=== PATIENT | male | born 1955 | race Caucasian/White ===

== ENCOUNTER 2018-04-30 10:39 | Emergency (ER) | payer OTHER ==
[~2018-04-30] VITALS: Ht 175.3 cm; Wt 99.8 kg
[~2018-04-30 10:39] MED LIST: ASPI81CH PO; AZAT50 PO; Augmentin 875-1 EACH PO; BUME1 PO; CALCA500S6 PO; CARV3.125 PO; ESTER-C 1,0001 EACH PO; FOLGARD TABLET1 EACH PO; FURO40 PO; GABA100 PO; LACT10SY; LAVAP17G PO; LOSA25 PO; MAGCIT300 PO; MAGOXI400 PO; MELA3 PO; MERIBIN5 MG PO; METO25ER PO; MIDO5 PO; MULT50L PO; NADO20; POTA10T; PRED1; PRED5 PO; Roxicodone5 MG PO; SPIR50 PO; TACR1 PO; TAMS.4ER PO; Tamiflu75 MG PO; Tessalon Perle100 MG PO; VALGANCICLOVIR450 MG PO
[2018-04-30] MEDS ORDERED: Tubersol (5 U/0.1 ML ID (10:55)
[2018-04-30] MEDS ORDERED: CHOL10002 PO (10:56)
[2018-04-30] MEDS ORDERED: GABA600 PO (10:57)
[2018-04-30] MEDS ORDERED: GABA100 PO (10:57)
[2018-04-30] MEDS ORDERED: LOSA25 PO (10:57)
[2018-04-30 11:48] LABS: BASOPHILS ABSOLUTE AUTO 0.03 K/mm3 (0.00-0.23); BASOPHILS PERCENT AUTO 1 % (0-2); EOSINOPHILS ABSOLUTE AUTO 0.27 K/mm3 (0.00-0.68); EOSINOPHILS PERCENT AUTO 5 % (0-6); Hematocrit 44.8 % (37.0-53.0); Hemoglobin 15.2 g/dL (13.5-17.5); IMMATURE GRAN ABSOLUTE AUTO 0.05 K/mm3 (0.00-0.10); IMMATURE GRAN PERCENT AUTO 1 % (0-1); LYMPHOCYTES ABSOLUTE AUTO 1.13 K/mm3 (0.84-5.20); LYMPHOCYTES PERCENT AUTO 20 % (21-46); MONOCYTES ABSOLUTE AUTO 0.72 K/mm3 (0.16-1.47); MONOCYTES PERCENT AUTO 13 % (4-13); Mean Corpuscular HGB 28.8 pg (26.0-34.0); Mean Corpuscular HGB Conc 33.9 g/dL (31.5-36.5); Mean Corpuscular Volume 85 fL (80-100); Mean Platelet Volume 10.8 fL (9.1-12.4); NEUTROPHILS ABSOLUTE AUTO 3.48 K/mm3 (1.96-9.15); NEUTROPHILS PERCENT AUTO 61 % (41-73); Platelet Count 124 K/mm3 (150-400); RDW Coefficient Variation 15.4 % (11.7-14.2); RDW Standard Deviation 47.5 fL (35.1-46.3); Red Blood Cell Count 5.27 M/mm3 (4.30-5.90); White Blood Cell Count 5.68 K/mm3 (4.00-11.30)
[2018-04-30 12:17] LABS: Alanine Aminotransfer (ALT/SGP 68 U/L (12-78); Albumin, Blood 3.4 g/dL (3.4-5.0); Albumin/Globulin Ratio 0.7 (0.8-1.8); Alk Phos 103 U/L (50-136); Anion Gap 8 mmol/L (6-16); Aspartate Aminotrans (AST/SGOT 36 U/L (12-37); Bilirubin, Total 1.1 mg/dL (0.1-1.0); Blood Urea Nitrogen 17 mg/dL (8-24); Bun/Creatinine Ratio 18.1 (12.0-20.0); CO2, Blood 25 mmol/L (21-32); Calcium, Blood 9.1 mg/dL (8.5-10.1); Chloride, Blood 102 mmol/L (98-108); Creatinine, Blood 0.94 mg/dL (0.60-1.20); Globulin, Blood 4.8 g/dL (2.2-4.0); Glomerular Filtration Rate >60 (60-); Glucose, Blood 113 mg/dL (70-99); Potassium, Blood 4.8 mmol/L (3.5-5.5); Sodium, Blood 135 mmol/L (136-145); Total Protein, Blood 8.2 g/dL (6.4-8.2)
== END 2018-04-30 14:58 | disposition home or self-care (01) ==
LOC: ER 10:39
PROVIDERS: Emergency Medicine
DX: G61.0 Guillain-Barre syndrome (principal); Z88.8 Allergy status to other drugs, medicaments and biological substances; Z79.899 Other long term (current) drug therapy; Z79.82 Long term (current) use of aspirin; Z79.52 Long term (current) use of systemic steroids; Z87.891 Personal history of nicotine dependence
CPT/HCPCS: 36415; 80053; 85025

== ENCOUNTER 2018-05-27 00:13 | Day surgery (SDC) | payer OTHER ==
[~2018-05-27 00:13] MED LIST changes: +CHOL10002 PO; +GABA600 PO; +Tubersol (5 U/0.1 ML ID
== END 2018-05-27 15:59 | disposition home or self-care (01) ==
LOC: ATC 00:13
DX: G61.81 Chronic inflammatory demyelinating polyneuritis (principal); Z94.4 Liver transplant status
CPT/HCPCS: 96365; 96366; J1568

== ENCOUNTER 2018-05-31 15:41 | Observation (INO) | payer OTHER ==
[~2018-05-31] VITALS: Ht 177.8 cm; Wt 98.9 kg
[2018-05-31] MEDS ORDERED: LOSA25 PO (15:51)
[2018-05-31] MEDS ORDERED: PRED1 PO (15:52)
[2018-05-31 17:20] LABS: BASOPHILS ABSOLUTE AUTO 0.02 K/mm3 (0.00-0.23); BASOPHILS PERCENT AUTO 0 % (0-2); EOSINOPHILS ABSOLUTE AUTO 0.11 K/mm3 (0.00-0.68); EOSINOPHILS PERCENT AUTO 2 % (0-6); Hematocrit 49.7 % (37.0-53.0); Hemoglobin 16.7 g/dL (13.5-17.5); IMMATURE GRAN ABSOLUTE AUTO 0.04 K/mm3 (0.00-0.10); IMMATURE GRAN PERCENT AUTO 1 % (0-1); LYMPHOCYTES ABSOLUTE AUTO 1.43 K/mm3 (0.84-5.20); LYMPHOCYTES PERCENT AUTO 27 % (21-46); MONOCYTES ABSOLUTE AUTO 0.73 K/mm3 (0.16-1.47); MONOCYTES PERCENT AUTO 14 % (4-13); Mean Corpuscular HGB Conc 33.6 g/dL (31.5-36.5); Mean Corpuscular Volume 86 fL (80-100); Mean Platelet Volume 11.3 fL (9.1-12.4); NEUTROPHILS ABSOLUTE AUTO 2.96 K/mm3 (1.96-9.15); NEUTROPHILS PERCENT AUTO 56 % (41-73); Platelet Count 163 K/mm3 (150-400); RDW Coefficient Variation 15.1 % (11.7-14.2); RDW Standard Deviation 47.8 fL (35.1-46.3); Red Blood Cell Count 5.76 M/mm3 (4.30-5.90); White Blood Cell Count 5.29 K/mm3 (4.00-11.30)
[2018-05-31 17:36] LABS: Alanine Aminotransfer (ALT/SGP 52 U/L (12-78); Albumin, Blood 3.4 g/dL (3.4-5.0); Albumin/Globulin Ratio 0.6 (0.8-1.8); Alk Phos 97 U/L (50-136); Anion Gap 8 mmol/L (6-16); Aspartate Aminotrans (AST/SGOT 32 U/L (12-37); Bilirubin, Total 0.8 mg/dL (0.1-1.0); Blood Urea Nitrogen 18 mg/dL (8-24); Bun/Creatinine Ratio 29.1 (12.0-20.0); CO2, Blood 21 mmol/L (21-32); Chloride, Blood 93 mmol/L (98-108); Creatinine, Blood 0.62 mg/dL (0.60-1.20); Glomerular Filtration Rate >60 (60-); Glucose, Blood 126 mg/dL (70-99); Potassium, Blood 4.6 mmol/L (3.5-5.5); Sodium, Blood 122 mmol/L (136-145); Total Protein, Blood 9.4 g/dL (6.4-8.2)
[2018-06-01 01:04] LABS: Free Thyroxine 1.06 ng/dL (0.70-1.60)
[2018-06-01 01:06] LABS: Thyroid Stimulating Hormone 4.47 uIU/mL (0.360-4.800)
[2018-06-01 03:43] LABS: Hematocrit 44.7 % (37.0-53.0); Hemoglobin 15.5 g/dL (13.5-17.5); Mean Corpuscular HGB 29.5 pg (26.0-34.0); Mean Corpuscular HGB Conc 34.7 g/dL (31.5-36.5); Mean Corpuscular Volume 85 fL (80-100); Mean Platelet Volume 9.6 fL (9.1-12.4); Platelet Count 142 K/mm3 (150-400); RDW Coefficient Variation 14.9 % (11.7-14.2); RDW Standard Deviation 45.3 fL (35.1-46.3); Red Blood Cell Count 5.26 M/mm3 (4.30-5.90); White Blood Cell Count 5.58 K/mm3 (4.00-11.30)
[2018-06-01 04:05] LABS: Alanine Aminotransfer (ALT/SGP 44 U/L (12-78); Albumin, Blood 3.2 g/dL (3.4-5.0); Albumin/Globulin Ratio 0.5 (0.8-1.8); Alk Phos 81 U/L (50-136); Anion Gap 8 mmol/L (6-16); Aspartate Aminotrans (AST/SGOT 25 U/L (12-37); Blood Urea Nitrogen 17 mg/dL (8-24); Bun/Creatinine Ratio 20.7 (12.0-20.0); CO2, Blood 24 mmol/L (21-32); Calcium, Blood 8.3 mg/dL (8.5-10.1); Chloride, Blood 93 mmol/L (98-108); Creatinine, Blood 0.82 mg/dL (0.60-1.20); Globulin, Blood 6.3 g/dL (2.2-4.0); Glomerular Filtration Rate >60 (60-); Glucose, Blood 104 mg/dL (70-99); Potassium, Blood 4.1 mmol/L (3.5-5.5); Sodium, Blood 125 mmol/L (136-145); Total Protein, Blood 9.5 g/dL (6.4-8.2)
[2018-06-01 08:53] LABS: Source, Urine Clean Catch
[2018-06-01 08:56] LABS: Bilirubin, Urine Neg (Neg); Blood, Urine 2+ (Neg); Glucose Qualitative, Urine Neg (Neg); Ketones, Urine Neg (Neg); Leukocyte Esterase, Urine Neg (Neg); Nitrite, Urine Neg (Neg); Protein, Urine Neg (Neg); Urobilinogen, Urine NORM (Normal)
[2018-06-01 09:15] LABS: Appearance, Urine Clear (Clear); Color, Urine Yellow (P-Yellow)
[2018-06-01 09:16] LABS: Bacteria Rare /hpf; Red Blood Cells, Urine 0-2 /hpf (0-2); Squamous Epithelial Cells Rare /hpf (Few); White Blood Cells, Urine 0-2 /hpf (0-5)
== END 2018-06-01 11:02 | disposition short-term general hospital (02) ==
LOC: ER 15:41 → PCU 06-01 00:02
PROVIDERS: Emergency Medicine; Internal Medicine
DX: G61.0 Guillain-Barre syndrome (principal); E87.1 Hypo-osmolality and hyponatremia; I10 Essential (primary) hypertension; Z79.82 Long term (current) use of aspirin; Z79.899 Other long term (current) drug therapy; Z88.8 Allergy status to other drugs, medicaments and biological substances
CPT/HCPCS: 36415; 71045; 80053; 81001; 84439; 84443; 85025; 85027; 96365; 96366; 96372; 99285; G0378; J1568; J1650; J7030; J7507; Q0163

== ENCOUNTER 2018-07-05 00:17 | Day surgery (SDC) | payer OTHER ==
[~2018-07-05 00:17] MED LIST changes: +PRED1 PO
[2018-07-05] MEDS ORDERED: Acyclovir200 MG PO (14:24)
[2018-07-05] MEDS ORDERED: Bactrim Ds Tab1 EACH PO (14:24)
[2018-07-05] MEDS ORDERED: FLUC100 PO (14:25)
== END 2018-07-05 16:18 | disposition home or self-care (01) ==
LOC: ATC 00:17
DX: G61.81 Chronic inflammatory demyelinating polyneuritis (principal); I10 Essential (primary) hypertension; Z87.891 Personal history of nicotine dependence
CPT/HCPCS: 96365; 96366; J1568

== ENCOUNTER 2018-07-07 13:37 | Day surgery (SDC) | payer OTHER ==
[~2018-07-07 13:37] MED LIST changes: +Acyclovir200 MG PO; +Bactrim Ds Tab1 EACH PO; +FLUC100 PO
== END 2018-07-07 16:10 | disposition home or self-care (01) ==
LOC: ATC 13:37
DX: G61.81 Chronic inflammatory demyelinating polyneuritis (principal); I10 Essential (primary) hypertension; Z87.891 Personal history of nicotine dependence
CPT/HCPCS: 96365; 96366; J1568

== ENCOUNTER 2018-07-08 00:24 | Day surgery (SDC) | payer OTHER | END 2018-07-08 16:40 | disposition home or self-care (01) | LOC: ATC 00:24 | DX: G61.81 Chronic inflammatory demyelinating polyneuritis (principal); I10 Essential (primary) hypertension; Z94.4 Liver transplant status; Z87.891 Personal history of nicotine dependence | CPT/HCPCS: 96365; 96366; J1568 ==

== ENCOUNTER 2018-10-04 00:48 | Day surgery (SDC) | payer OTHER ==
[~2018-10-04 00:48] MED LIST changes: +(None)20 M1 PO; -PRED1 PO; +TACROLIMUS5 MG PO
== END 2018-10-04 22:43 | disposition home or self-care (01) ==
LOC: ATC 00:48
DX: G61.81 Chronic inflammatory demyelinating polyneuritis (principal)
CPT/HCPCS: 96365; 96366; J1568

== ENCOUNTER 2018-10-05 00:04 | Day surgery (SDC) | payer OTHER | END 2018-10-05 16:30 | disposition home or self-care (01) | LOC: ATC 00:04 | DX: G61.81 Chronic inflammatory demyelinating polyneuritis (principal); N39.0 Urinary tract infection, site not specified | CPT/HCPCS: 96365; 96366; J1568 ==

== ENCOUNTER 2018-10-06 00:12 | Day surgery (SDC) | payer OTHER | END 2018-10-06 16:35 | disposition home or self-care (01) | LOC: ATC 00:12 | DX: G61.81 Chronic inflammatory demyelinating polyneuritis (principal) | CPT/HCPCS: 96365; 96366; J1568 ==

== ENCOUNTER 2018-10-07 00:12 | Day surgery (SDC) | payer OTHER | END 2018-10-07 16:34 | disposition home or self-care (01) | LOC: ATC 00:12 | DX: G61.81 Chronic inflammatory demyelinating polyneuritis (principal); N39.0 Urinary tract infection, site not specified; B96.29 Other Escherichia coli [E. coli] as the cause of diseases classified elsewhere; I10 Essential (primary) hypertension; F32.9 Major depressive disorder, single episode, unspecified | CPT/HCPCS: 96365; 96366; J1568 ==

== ENCOUNTER 2018-11-01 00:10 | Day surgery (SDC) | payer OTHER | END 2018-11-01 23:26 | disposition home or self-care (01) | LOC: ATC 00:10 | DX: N39.0 Urinary tract infection, site not specified (principal); B96.20 Unspecified Escherichia coli [E. coli] as the cause of diseases classified elsewhere; Z16.12 Extended spectrum beta lactamase (ESBL) resistance | CPT/HCPCS: 96365; 96366; J1568 ==

== ENCOUNTER 2018-11-02 00:19 | Day surgery (SDC) | payer OTHER | END 2018-11-02 16:03 | disposition home or self-care (01) | LOC: ATC 00:19 | DX: N39.0 Urinary tract infection, site not specified (principal); B96.20 Unspecified Escherichia coli [E. coli] as the cause of diseases classified elsewhere; Z16.12 Extended spectrum beta lactamase (ESBL) resistance | CPT/HCPCS: 96365; 96366; J1568 ==

== ENCOUNTER 2018-11-03 00:11 | Day surgery (SDC) | payer OTHER | END 2018-11-03 15:53 | disposition home or self-care (01) | LOC: ATC 00:11 | DX: G61.81 Chronic inflammatory demyelinating polyneuritis (principal); N39.0 Urinary tract infection, site not specified; B96.20 Unspecified Escherichia coli [E. coli] as the cause of diseases classified elsewhere; G61.0 Guillain-Barre syndrome; I10 Essential (primary) hypertension; Z16.12 Extended spectrum beta lactamase (ESBL) resistance; Z87.891 Personal history of nicotine dependence | CPT/HCPCS: 96365; 96366; J1568 ==

== ENCOUNTER 2018-11-04 00:16 | Day surgery (SDC) | payer OTHER | END 2018-11-04 13:55 | disposition home or self-care (01) | LOC: ATC 00:16 | DX: N39.0 Urinary tract infection, site not specified (principal); G61.81 Chronic inflammatory demyelinating polyneuritis; B96.20 Unspecified Escherichia coli [E. coli] as the cause of diseases classified elsewhere; G61.0 Guillain-Barre syndrome; I10 Essential (primary) hypertension; Z16.12 Extended spectrum beta lactamase (ESBL) resistance; Z87.891 Personal history of nicotine dependence | CPT/HCPCS: 96365; 96366; J1568 ==

== ENCOUNTER 2018-12-27 00:12 | Day surgery (SDC) | payer OTHER ==
[2018-12-27] MEDS ORDERED: VALA500 PO (13:45)
== END 2018-12-27 16:19 | disposition home or self-care (01) ==
LOC: ATC 00:12
DX: G61.81 Chronic inflammatory demyelinating polyneuritis (principal); N39.0 Urinary tract infection, site not specified; B96.20 Unspecified Escherichia coli [E. coli] as the cause of diseases classified elsewhere; Z16.12 Extended spectrum beta lactamase (ESBL) resistance; G61.0 Guillain-Barre syndrome; Z87.891 Personal history of nicotine dependence
CPT/HCPCS: 96365; 96366; J1568

== ENCOUNTER 2018-12-29 00:11 | Day surgery (SDC) | payer OTHER ==
[~2018-12-29 00:11] MED LIST changes: +VALA500 PO
== END 2018-12-29 15:45 | disposition home or self-care (01) ==
LOC: ATC 00:11
DX: G61.81 Chronic inflammatory demyelinating polyneuritis (principal); N39.0 Urinary tract infection, site not specified; B96.20 Unspecified Escherichia coli [E. coli] as the cause of diseases classified elsewhere; Z16.12 Extended spectrum beta lactamase (ESBL) resistance; G61.0 Guillain-Barre syndrome; Z87.891 Personal history of nicotine dependence
CPT/HCPCS: 96365; 96366; J1568

== ENCOUNTER 2018-12-30 00:16 | Day surgery (SDC) | payer OTHER | END 2018-12-30 17:05 | disposition home or self-care (01) | LOC: ATC 00:16 | DX: G61.81 Chronic inflammatory demyelinating polyneuritis (principal); N39.0 Urinary tract infection, site not specified; B96.20 Unspecified Escherichia coli [E. coli] as the cause of diseases classified elsewhere; Z16.12 Extended spectrum beta lactamase (ESBL) resistance; G61.0 Guillain-Barre syndrome; Z87.891 Personal history of nicotine dependence | CPT/HCPCS: 96365; 96366; J1568 ==

== ENCOUNTER 2019-01-31 00:26 | Day surgery (SDC) | payer OTHER ==
[~2019-01-31 00:26] MED LIST changes: +LEVO750 PO; +ONDA4ODT MM; +VALA500
[2019-01-31] MEDS ORDERED: IRBE75 PO (13:43)
[2019-01-31] MEDS ORDERED: PRED10 PO (13:44)
== END 2019-01-31 15:47 | disposition home or self-care (01) ==
LOC: ATC 00:26
DX: G61.81 Chronic inflammatory demyelinating polyneuritis (principal); I10 Essential (primary) hypertension; G61.0 Guillain-Barre syndrome; Z94.4 Liver transplant status; Z88.8 Allergy status to other drugs, medicaments and biological substances; Z79.899 Other long term (current) drug therapy; Z87.891 Personal history of nicotine dependence; Z79.82 Long term (current) use of aspirin
CPT/HCPCS: J1568

== ENCOUNTER 2019-02-01 00:11 | Day surgery (SDC) | payer OTHER ==
[~2019-02-01 00:11] MED LIST changes: +IRBE75 PO; +PRED10 PO
== END 2019-02-01 15:45 | disposition home or self-care (01) ==
LOC: ATC 00:11
DX: G61.81 Chronic inflammatory demyelinating polyneuritis (principal); I10 Essential (primary) hypertension; F17.210 Nicotine dependence, cigarettes, uncomplicated; Z94.4 Liver transplant status; Z88.8 Allergy status to other drugs, medicaments and biological substances; Z79.899 Other long term (current) drug therapy; Z79.82 Long term (current) use of aspirin
CPT/HCPCS: 96365; 96366; J1568

== ENCOUNTER 2019-02-02 00:22 | Day surgery (SDC) | payer OTHER, MEDICARE ==
--- NOTE | 2019-02-02 08:13 | NUR ---
LABS DRAWN WITH IV START.
[2019-02-02 08:27] LABS: BASOPHILS ABSOLUTE AUTO 0.04 K/mm3 (0.00-0.23); BASOPHILS PERCENT AUTO 1 % (0-2); EOSINOPHILS ABSOLUTE AUTO 0.04 K/mm3 (0.00-0.68); EOSINOPHILS PERCENT AUTO 1 % (0-6); Hematocrit 48.4 % (37.0-53.0); Hemoglobin 15.5 g/dL (13.5-17.5); IMMATURE GRAN ABSOLUTE AUTO 0.04 K/mm3 (0.00-0.10); IMMATURE GRAN PERCENT AUTO 1 % (0-1); LYMPHOCYTES ABSOLUTE AUTO 1.52 K/mm3 (0.84-5.20); LYMPHOCYTES PERCENT AUTO 29 % (21-46); MONOCYTES ABSOLUTE AUTO 0.38 K/mm3 (0.16-1.47); MONOCYTES PERCENT AUTO 7 % (4-13); Mean Corpuscular HGB 29.1 pg (26.0-34.0); Mean Corpuscular Volume 91 fL (80-100); Mean Platelet Volume 10.9 fL (9.1-12.4); NEUTROPHILS ABSOLUTE AUTO 3.19 K/mm3 (1.96-9.15); NEUTROPHILS PERCENT AUTO 61 % (41-73); Platelet Count 144 K/mm3 (150-400); RDW Coefficient Variation 16.1 % (11.7-14.2); RDW Standard Deviation 53.3 fL (35.1-46.3); Red Blood Cell Count 5.32 M/mm3 (4.30-5.90); White Blood Cell Count 5.21 K/mm3 (4.00-11.30)
[2019-02-02 09:03] LABS: Alanine Aminotransfer (ALT/SGP 70 U/L (12-78); Albumin, Blood 3.3 g/dL (3.4-5.0); Albumin/Globulin Ratio 0.6 (0.8-1.8); Alk Phos 132 U/L (50-136); Anion Gap 6 mmol/L (6-16); Aspartate Aminotrans (AST/SGOT 36 U/L (12-37); Bilirubin, Direct 0.2 mg/dL (0.0-0.3); Bilirubin, Total 0.7 mg/dL (0.1-1.0); Blood Urea Nitrogen 14 mg/dL (8-24); Bun/Creatinine Ratio 12.8 (12.0-20.0); CO2, Blood 28 mmol/L (21-32); Calcium, Blood 8.8 mg/dL (8.5-10.1); Chloride, Blood 103 mmol/L (98-108); Creatinine, Blood 1.09 mg/dL (0.60-1.20); Globulin, Blood 5.6 g/dL (2.2-4.0); Glomerular Filtration Rate >60 (60-); Glucose, Blood 87 mg/dL (70-99); Magnesium, Blood 1.8 mg/dL (1.6-2.4); Phosphorus, Blood 3.1 mg/dL (2.5-4.9); Potassium, Blood 3.9 mmol/L (3.5-5.5); Sodium, Blood 137 mmol/L (136-145); Total Protein, Blood 8.9 g/dL (6.4-8.2); Uric Acid, Blood 6.2 mg/dL (3.5-7.2)
== END 2019-02-02 11:33 | disposition home or self-care (01) ==
LOC: ATC 00:22
DX: G61.81 Chronic inflammatory demyelinating polyneuritis (principal); I10 Essential (primary) hypertension; G61.0 Guillain-Barre syndrome; Z94.4 Liver transplant status; Z88.8 Allergy status to other drugs, medicaments and biological substances; Z87.891 Personal history of nicotine dependence
CPT/HCPCS: 80053; 80197; 82248; 83735; 84100; 84550; 85025; 96365; 96366; J1568

== ENCOUNTER 2019-03-07 08:05 | Day surgery (SDC) | payer OTHER, MEDICARE ==
[2019-03-07] MEDS ORDERED: AZAT50 PO (08:34)
[2019-03-07 08:47] LABS: BASOPHILS ABSOLUTE AUTO 0.04 K/mm3 (0.00-0.23); BASOPHILS PERCENT AUTO 1 % (0-2); EOSINOPHILS ABSOLUTE AUTO 0.11 K/mm3 (0.00-0.68); EOSINOPHILS PERCENT AUTO 2 % (0-6); Hematocrit 45.8 % (37.0-53.0); Hemoglobin 15.2 g/dL (13.5-17.5); IMMATURE GRAN ABSOLUTE AUTO 0.03 K/mm3 (0.00-0.10); IMMATURE GRAN PERCENT AUTO 1 % (0-1); LYMPHOCYTES ABSOLUTE AUTO 1.45 K/mm3 (0.84-5.20); LYMPHOCYTES PERCENT AUTO 24 % (21-46); MONOCYTES ABSOLUTE AUTO 0.68 K/mm3 (0.16-1.47); MONOCYTES PERCENT AUTO 11 % (4-13); Mean Corpuscular HGB 30.1 pg (26.0-34.0); Mean Corpuscular HGB Conc 33.2 g/dL (31.5-36.5); Mean Corpuscular Volume 91 fL (80-100); Mean Platelet Volume 11.5 fL (9.1-12.4); NEUTROPHILS ABSOLUTE AUTO 3.66 K/mm3 (1.96-9.15); NEUTROPHILS PERCENT AUTO 61 % (41-73); Platelet Count 149 K/mm3 (150-400); RDW Coefficient Variation 14.6 % (11.7-14.2); RDW Standard Deviation 47.8 fL (35.1-46.3); Red Blood Cell Count 5.05 M/mm3 (4.30-5.90); White Blood Cell Count 5.97 K/mm3 (4.00-11.30)
[2019-03-07 09:09] LABS: Alanine Aminotransfer (ALT/SGP 85 U/L (12-78); Albumin, Blood 3.6 g/dL (3.4-5.0); Albumin/Globulin Ratio 0.9 (0.8-1.8); Alk Phos 157 U/L (50-136); Anion Gap 6 mmol/L (6-16); Aspartate Aminotrans (AST/SGOT 50 U/L (12-37); Bilirubin, Direct 0.1 mg/dL (0.0-0.3); Bilirubin, Total 0.5 mg/dL (0.1-1.0); Blood Urea Nitrogen 24 mg/dL (8-24); CO2, Blood 27 mmol/L (21-32); Chloride, Blood 106 mmol/L (98-108); Globulin, Blood 4.2 g/dL (2.2-4.0); Glomerular Filtration Rate >60 (60-); Glucose, Blood 94 mg/dL (70-99); Phosphorus, Blood 3.5 mg/dL (2.5-4.9); Potassium, Blood 4.1 mmol/L (3.5-5.5); Sodium, Blood 139 mmol/L (136-145); Total Protein, Blood 7.8 g/dL (6.4-8.2); Uric Acid, Blood 8.7 mg/dL (3.5-7.2)
== END 2019-03-07 12:29 | disposition home or self-care (01) ==
LOC: ATC 08:05
PROVIDERS: Internal Medicine
DX: G61.81 Chronic inflammatory demyelinating polyneuritis (principal); I10 Essential (primary) hypertension; Z94.4 Liver transplant status; Z88.8 Allergy status to other drugs, medicaments and biological substances
CPT/HCPCS: 80053; 80197; 82248; 83735; 84100; 84550; 85025; J1568

== ENCOUNTER 2019-03-08 07:24 | Day surgery (SDC) | payer MEDICARE, OTHER | END 2019-03-08 11:25 | disposition home or self-care (01) | LOC: ATC 07:24 | DX: G61.81 Chronic inflammatory demyelinating polyneuritis (principal); I10 Essential (primary) hypertension; Z94.4 Liver transplant status; Z86.19 Personal history of other infectious and parasitic diseases | CPT/HCPCS: J1568 ==

== ENCOUNTER 2019-03-09 07:56 | Day surgery (SDC) | payer OTHER ==
[2019-03-09 09:03] LABS: Alanine Aminotransfer (ALT/SGP 73 U/L (12-78); Albumin, Blood 3.4 g/dL (3.4-5.0); Albumin/Globulin Ratio 0.6 (0.8-1.8); Alk Phos 124 U/L (50-136); Anion Gap 6 mmol/L (6-16); Aspartate Aminotrans (AST/SGOT 46 U/L (12-37); Bilirubin, Direct 0.2 mg/dL (0.0-0.3); Bilirubin, Indirect 0.3 mg/dL (0.1-0.7); Bilirubin, Total 0.5 mg/dL (0.1-1.0); Blood Urea Nitrogen 17 mg/dL (8-24); Bun/Creatinine Ratio 16.5 (12.0-20.0); CO2, Blood 25 mmol/L (21-32); Calcium, Blood 8.7 mg/dL (8.5-10.1); Chloride, Blood 104 mmol/L (98-108); Creatinine, Blood 1.03 mg/dL (0.60-1.20); Glomerular Filtration Rate >60 (60-); Glucose, Blood 98 mg/dL (70-99); Phosphorus, Blood 3.3 mg/dL (2.5-4.9); Sodium, Blood 135 mmol/L (136-145); Total Protein, Blood 9.4 g/dL (6.4-8.2)
== END 2019-03-09 23:01 | disposition home or self-care (01) ==
LOC: ATC 07:56
PROVIDERS: Internal Medicine Nephrology
DX: G61.81 Chronic inflammatory demyelinating polyneuritis (principal); I12.9 Hypertensive chronic kidney disease with stage 1 through stage 4 chronic kidney disease, or unspecified chronic kidney disease; N18.2 Chronic kidney disease, stage 2 (mild); N25.81 Secondary hyperparathyroidism of renal origin; E55.9 Vitamin D deficiency, unspecified; E78.00 Pure hypercholesterolemia, unspecified; R94.5 Abnormal results of liver function studies; R94.6 Abnormal results of thyroid function studies; R76.9 Abnormal immunological finding in serum, unspecified; Z94.4 Liver transplant status; Z86.19 Personal history of other infectious and parasitic diseases; Z79.82 Long term (current) use of aspirin; Z79.899 Other long term (current) drug therapy; Z88.8 Allergy status to other drugs, medicaments and biological substances
CPT/HCPCS: 80053; 82248; 83970; 84100; J1568

== ENCOUNTER 2019-03-10 00:15 | Day surgery (SDC) | payer MEDICARE, OTHER | END 2019-03-10 11:19 | disposition home or self-care (01) | LOC: ATC 00:15 | DX: G61.81 Chronic inflammatory demyelinating polyneuritis (principal); I10 Essential (primary) hypertension; Z94.4 Liver transplant status; Z88.8 Allergy status to other drugs, medicaments and biological substances; Z79.899 Other long term (current) drug therapy; Z79.82 Long term (current) use of aspirin; Z87.891 Personal history of nicotine dependence | CPT/HCPCS: 96365; 96366; J1568 ==

== ENCOUNTER 2019-04-04 00:11 | Day surgery (SDC) | payer OTHER ==
[2019-04-04 09:04] LABS: BASOPHILS ABSOLUTE AUTO 0.04 K/mm3 (0.00-0.23); BASOPHILS PERCENT AUTO 1 % (0-2); EOSINOPHILS ABSOLUTE AUTO 0.12 K/mm3 (0.00-0.68); EOSINOPHILS PERCENT AUTO 3 % (0-6); Hematocrit 46.1 % (37.0-53.0); Hemoglobin 15.2 g/dL (13.5-17.5); IMMATURE GRAN ABSOLUTE AUTO 0.03 K/mm3 (0.00-0.10); IMMATURE GRAN PERCENT AUTO 1 % (0-1); LYMPHOCYTES ABSOLUTE AUTO 1.36 K/mm3 (0.84-5.20); LYMPHOCYTES PERCENT AUTO 29 % (21-46); MONOCYTES ABSOLUTE AUTO 0.52 K/mm3 (0.16-1.47); MONOCYTES PERCENT AUTO 11 % (4-13); Mean Corpuscular HGB 30.2 pg (26.0-34.0); Mean Corpuscular Volume 92 fL (80-100); Mean Platelet Volume 12.5 fL (9.1-12.4); NEUTROPHILS PERCENT AUTO 57 % (41-73); Platelet Count 146 K/mm3 (150-400); RDW Coefficient Variation 15.1 % (11.7-14.2); RDW Standard Deviation 50.7 fL (35.1-46.3); Red Blood Cell Count 5.04 M/mm3 (4.30-5.90); White Blood Cell Count 4.77 K/mm3 (4.00-11.30)
[2019-04-04 09:20] LABS: Anion Gap 7 mmol/L (6-16); Bilirubin, Direct 0.2 mg/dL (0.0-0.3); Blood Urea Nitrogen 20 mg/dL (8-24); Bun/Creatinine Ratio 20.8 (12.0-20.0); CO2, Blood 26 mmol/L (21-32); Chloride, Blood 105 mmol/L (98-108); Creatinine, Blood 0.96 mg/dL (0.60-1.20); Glomerular Filtration Rate >60 (60-); Glucose, Blood 97 mg/dL (70-99); Phosphorus, Blood 3.8 mg/dL (2.5-4.9); Potassium, Blood 4.2 mmol/L (3.5-5.5); Sodium, Blood 138 mmol/L (136-145); Uric Acid, Blood 6.3 mg/dL (3.5-7.2)
[2019-04-05] MEDS ORDERED: OCTAGAM 10% VIA20 ML IV (08:52)
== END 2019-04-04 11:34 | disposition home or self-care (01) ==
LOC: ATC 00:11
DX: G61.81 Chronic inflammatory demyelinating polyneuritis (principal); I10 Essential (primary) hypertension; K70.30 Alcoholic cirrhosis of liver without ascites; G61.0 Guillain-Barre syndrome; Z94.4 Liver transplant status; Z86.19 Personal history of other infectious and parasitic diseases
CPT/HCPCS: 80048; 80197; 82248; 84100; 84550; 85025; 96365; 96366; J1568

== ENCOUNTER 2019-04-05 00:16 | Day surgery (SDC) | payer OTHER ==
[2019-04-05] MEDS ORDERED: OCTAGAM 10% VIA20 ML IV (08:52)
== END 2019-04-05 11:55 | disposition home or self-care (01) ==
LOC: ATC 00:16
DX: G61.81 Chronic inflammatory demyelinating polyneuritis (principal); I10 Essential (primary) hypertension; G61.0 Guillain-Barre syndrome; Z94.4 Liver transplant status; Z86.19 Personal history of other infectious and parasitic diseases; Z88.8 Allergy status to other drugs, medicaments and biological substances
CPT/HCPCS: 96365; 96366; J1568

== ENCOUNTER 2019-04-06 00:06 | Day surgery (SDC) | payer OTHER ==
[~2019-04-06 00:06] MED LIST changes: +OCTAGAM 10% VIA20 ML IV
== END 2019-04-06 11:37 | disposition home or self-care (01) ==
LOC: ATC 00:06
DX: G61.81 Chronic inflammatory demyelinating polyneuritis (principal); I10 Essential (primary) hypertension; Z94.4 Liver transplant status; Z88.8 Allergy status to other drugs, medicaments and biological substances; Z79.899 Other long term (current) drug therapy; Z79.82 Long term (current) use of aspirin; Z87.891 Personal history of nicotine dependence
CPT/HCPCS: 96365; 96366; J1568

== ENCOUNTER 2019-07-04 00:03 | Day surgery (SDC) | payer OTHER ==
[2019-07-04 09:01] LABS: BASOPHILS ABSOLUTE AUTO 0.07 K/mm3 (0.00-0.23); BASOPHILS PERCENT AUTO 1 % (0-2); EOSINOPHILS ABSOLUTE AUTO 0.47 K/mm3 (0.00-0.68); EOSINOPHILS PERCENT AUTO 7 % (0-6); Hematocrit 46.1 % (37.0-53.0); Hemoglobin 14.9 g/dL (13.5-17.5); IMMATURE GRAN ABSOLUTE AUTO 0.02 K/mm3 (0.00-0.10); IMMATURE GRAN PERCENT AUTO 0 % (0-1); LYMPHOCYTES ABSOLUTE AUTO 1.64 K/mm3 (0.84-5.20); LYMPHOCYTES PERCENT AUTO 25 % (21-46); MONOCYTES ABSOLUTE AUTO 0.91 K/mm3 (0.16-1.47); MONOCYTES PERCENT AUTO 14 % (4-13); Mean Corpuscular HGB 28.3 pg (26.0-34.0); Mean Corpuscular HGB Conc 32.3 g/dL (31.5-36.5); Mean Corpuscular Volume 88 fL (80-100); NEUTROPHILS ABSOLUTE AUTO 3.48 K/mm3 (1.96-9.15); NEUTROPHILS PERCENT AUTO 53 % (41-73); Platelet Count 115 K/mm3 (150-400); RDW Coefficient Variation 13.9 % (11.7-14.2); RDW Standard Deviation 44.1 fL (35.1-46.3); Red Blood Cell Count 5.26 M/mm3 (4.30-5.90); White Blood Cell Count 6.59 K/mm3 (4.00-11.30)
[2019-07-04 09:07] LABS: Mean Platelet Volume 13.4 fL (9.1-12.4)
[2019-07-04 09:17] LABS: Alanine Aminotransfer (ALT/SGP 67 U/L (12-78); Albumin, Blood 3.6 g/dL (3.4-5.0); Albumin/Globulin Ratio 0.8 (0.8-1.8); Alk Phos 137 U/L (50-136); Anion Gap 7 mmol/L (6-16); Aspartate Aminotrans (AST/SGOT 38 U/L (12-37); Bilirubin, Direct 0.1 mg/dL (0.0-0.3); Bilirubin, Total 0.6 mg/dL (0.1-1.0); Blood Urea Nitrogen 24 mg/dL (8-24); Bun/Creatinine Ratio 22.2 (12.0-20.0); CO2, Blood 26 mmol/L (21-32); Calcium, Blood 8.9 mg/dL (8.5-10.1); Chloride, Blood 103 mmol/L (98-108); Creatinine, Blood 1.08 mg/dL (0.60-1.20); Globulin, Blood 4.3 g/dL (2.2-4.0); Glomerular Filtration Rate >60 (60-); Glucose, Blood 109 mg/dL (70-99); Magnesium, Blood 1.8 mg/dL (1.6-2.4); Phosphorus, Blood 3.4 mg/dL (2.5-4.9); Potassium, Blood 4.1 mmol/L (3.5-5.5); Sodium, Blood 136 mmol/L (136-145); Total Protein, Blood 7.9 g/dL (6.4-8.2); Uric Acid, Blood 7.8 mg/dL (3.5-7.2)
== END 2019-07-04 10:30 | disposition home or self-care (01) ==
LOC: ATC 00:03
PROVIDERS: Internal Medicine
DX: G61.81 Chronic inflammatory demyelinating polyneuritis (principal); I10 Essential (primary) hypertension; Z94.4 Liver transplant status
CPT/HCPCS: 80053; 80197; 82248; 83735; 84100; 84550; 85025; 96365; 96366; J1568

== ENCOUNTER 2019-07-05 00:16 | Day surgery (SDC) | payer OTHER | END 2019-07-05 10:13 | disposition home or self-care (01) | LOC: ATC 00:16 | DX: G61.81 Chronic inflammatory demyelinating polyneuritis (principal); I10 Essential (primary) hypertension; Z94.4 Liver transplant status; Z88.8 Allergy status to other drugs, medicaments and biological substances; Z87.891 Personal history of nicotine dependence | CPT/HCPCS: 96365; 96366; J1568; Q0163 ==

== ENCOUNTER 2019-07-06 00:15 | Day surgery (SDC) | payer OTHER | END 2019-07-06 10:13 | disposition home or self-care (01) | LOC: ATC 00:15 | DX: G61.81 Chronic inflammatory demyelinating polyneuritis (principal); I10 Essential (primary) hypertension; Z94.4 Liver transplant status; Z88.8 Allergy status to other drugs, medicaments and biological substances | CPT/HCPCS: 96365; 96366; 96413; 96415; J1568 ==

== ENCOUNTER 2019-07-07 00:24 | Day surgery (SDC) | payer OTHER ==
--- NOTE | 2019-07-07 08:15 | NUR ---
PT TOOK HIS OWN PREMEDS
== END 2019-07-07 10:18 | disposition home or self-care (01) ==
LOC: ATC 00:24
DX: G61.81 Chronic inflammatory demyelinating polyneuritis (principal); I10 Essential (primary) hypertension; Z79.899 Other long term (current) drug therapy; Z79.82 Long term (current) use of aspirin; Z94.4 Liver transplant status; Z88.8 Allergy status to other drugs, medicaments and biological substances
CPT/HCPCS: 96365; 96366; J1568

== ENCOUNTER 2019-08-02 00:08 | Day surgery (SDC) | payer OTHER ==
[2019-08-02] MEDS ORDERED: AZAT50 PO (08:25)
[2019-08-02 08:34] LABS: BASOPHILS ABSOLUTE AUTO 0.04 K/mm3 (0.00-0.23); BASOPHILS PERCENT AUTO 1 % (0-2); EOSINOPHILS ABSOLUTE AUTO 0.49 K/mm3 (0.00-0.68); EOSINOPHILS PERCENT AUTO 9 % (0-6); Hematocrit 44.8 % (37.0-53.0); Hemoglobin 14.4 g/dL (13.5-17.5); IMMATURE GRAN ABSOLUTE AUTO 0.02 K/mm3 (0.00-0.10); IMMATURE GRAN PERCENT AUTO 0 % (0-1); LYMPHOCYTES ABSOLUTE AUTO 1.37 K/mm3 (0.84-5.20); LYMPHOCYTES PERCENT AUTO 26 % (21-46); MONOCYTES ABSOLUTE AUTO 0.68 K/mm3 (0.16-1.47); MONOCYTES PERCENT AUTO 13 % (4-13); Mean Corpuscular HGB 27.8 pg (26.0-34.0); Mean Corpuscular HGB Conc 32.1 g/dL (31.5-36.5); Mean Corpuscular Volume 87 fL (80-100); Mean Platelet Volume 11.9 fL (9.1-12.4); NEUTROPHILS ABSOLUTE AUTO 2.64 K/mm3 (1.96-9.15); NEUTROPHILS PERCENT AUTO 50 % (41-73); Platelet Count 153 K/mm3 (150-400); RDW Coefficient Variation 14.6 % (11.7-14.2); RDW Standard Deviation 45.1 fL (35.1-46.3); Red Blood Cell Count 5.18 M/mm3 (4.30-5.90); White Blood Cell Count 5.24 K/mm3 (4.00-11.30)
[2019-08-02 08:56] LABS: Alanine Aminotransfer (ALT/SGP 60 U/L (12-78); Albumin, Blood 3.5 g/dL (3.4-5.0); Albumin/Globulin Ratio 0.8 (0.8-1.8); Alk Phos 123 U/L (50-136); Anion Gap 6 mmol/L (6-16); Aspartate Aminotrans (AST/SGOT 40 U/L (12-37); Bilirubin, Direct 0.2 mg/dL (0.0-0.3); Bilirubin, Indirect 0.3 mg/dL (0.1-0.7); Bilirubin, Total 0.5 mg/dL (0.1-1.0); Blood Urea Nitrogen 24 mg/dL (8-24); Bun/Creatinine Ratio 23.3 (12.0-20.0); CO2, Blood 26 mmol/L (21-32); Calcium, Blood 8.7 mg/dL (8.5-10.1); Chloride, Blood 106 mmol/L (98-108); Creatinine, Blood 1.03 mg/dL (0.60-1.20); Globulin, Blood 4.3 g/dL (2.2-4.0); Glomerular Filtration Rate >60 (60-); Glucose, Blood 120 mg/dL (70-99); Magnesium, Blood 1.9 mg/dL (1.6-2.4); Phosphorus, Blood 3.1 mg/dL (2.5-4.9); Potassium, Blood 4.1 mmol/L (3.5-5.5); Sodium, Blood 138 mmol/L (136-145); Total Protein, Blood 7.8 g/dL (6.4-8.2); Uric Acid, Blood 7.5 mg/dL (3.5-7.2)
== END 2019-08-02 10:40 | disposition home or self-care (01) ==
LOC: ATC 00:08
PROVIDERS: Internal Medicine
DX: G61.81 Chronic inflammatory demyelinating polyneuritis (principal); I10 Essential (primary) hypertension; Z79.82 Long term (current) use of aspirin; Z88.8 Allergy status to other drugs, medicaments and biological substances; Z79.899 Other long term (current) drug therapy; Z87.891 Personal history of nicotine dependence
CPT/HCPCS: 80053; 80197; 82248; 83735; 84100; 84550; 85025; 96365; 96366; J1568

== ENCOUNTER 2019-08-03 00:07 | Day surgery (SDC) | payer OTHER | END 2019-08-03 10:15 | disposition home or self-care (01) | LOC: ATC 00:07 | DX: G61.81 Chronic inflammatory demyelinating polyneuritis (principal); I10 Essential (primary) hypertension; G61.0 Guillain-Barre syndrome; Z94.4 Liver transplant status; Z88.8 Allergy status to other drugs, medicaments and biological substances; Z79.82 Long term (current) use of aspirin; Z79.899 Other long term (current) drug therapy; Z79.52 Long term (current) use of systemic steroids; Z87.891 Personal history of nicotine dependence | CPT/HCPCS: 96365; 96366; J1568 ==

== ENCOUNTER 2019-08-04 00:08 | Day surgery (SDC) | payer OTHER ==
--- NOTE | 2019-08-04 08:11 | NUR ---
PT TAKES HIS OWN PRE MEDS AT HOME FOR HIS IVIG INFUSION.
== END 2019-08-04 10:05 | disposition home or self-care (01) ==
LOC: ATC 00:08
DX: G61.81 Chronic inflammatory demyelinating polyneuritis (principal); G61.0 Guillain-Barre syndrome; I10 Essential (primary) hypertension; Z94.4 Liver transplant status; Z88.8 Allergy status to other drugs, medicaments and biological substances; Z79.899 Other long term (current) drug therapy; Z79.82 Long term (current) use of aspirin; Z79.52 Long term (current) use of systemic steroids; Z87.891 Personal history of nicotine dependence
CPT/HCPCS: 96365; 96366; J1568

== ENCOUNTER 2019-08-05 01:07 | Day surgery (SDC) | payer OTHER | END 2019-08-05 10:36 | disposition home or self-care (01) | LOC: ATC 01:07 | DX: G61.81 Chronic inflammatory demyelinating polyneuritis (principal); I10 Essential (primary) hypertension; Z88.8 Allergy status to other drugs, medicaments and biological substances; Z79.82 Long term (current) use of aspirin; Z87.891 Personal history of nicotine dependence | CPT/HCPCS: 96365; 96366; J1568 ==

== ENCOUNTER 2019-08-29 00:01 | Day surgery (SDC) | payer OTHER ==
--- NOTE | 2019-08-29 08:15 | NUR ---
PT TOOK PRE MEDS AT HOME.
[2019-08-29 09:17] LABS: BASOPHILS ABSOLUTE AUTO 0.04 K/mm3 (0.00-0.23); BASOPHILS PERCENT AUTO 1 % (0-2); EOSINOPHILS ABSOLUTE AUTO 0.65 K/mm3 (0.00-0.68); EOSINOPHILS PERCENT AUTO 12 % (0-6); Hematocrit 45.2 % (37.0-53.0); Hemoglobin 14.7 g/dL (13.5-17.5); IMMATURE GRAN ABSOLUTE AUTO 0.02 K/mm3 (0.00-0.10); IMMATURE GRAN PERCENT AUTO 0 % (0-1); LYMPHOCYTES ABSOLUTE AUTO 1.36 K/mm3 (0.84-5.20); LYMPHOCYTES PERCENT AUTO 24 % (21-46); MONOCYTES ABSOLUTE AUTO 0.72 K/mm3 (0.16-1.47); MONOCYTES PERCENT AUTO 13 % (4-13); Mean Corpuscular HGB 28.1 pg (26.0-34.0); Mean Corpuscular HGB Conc 32.5 g/dL (31.5-36.5); Mean Corpuscular Volume 86 fL (80-100); Mean Platelet Volume 12.4 fL (9.1-12.4); NEUTROPHILS ABSOLUTE AUTO 2.84 K/mm3 (1.96-9.15); NEUTROPHILS PERCENT AUTO 50 % (41-73); Platelet Count 105 K/mm3 (150-400); Red Blood Cell Count 5.24 M/mm3 (4.30-5.90); White Blood Cell Count 5.63 K/mm3 (4.00-11.30)
[2019-08-29 09:33] LABS: Alanine Aminotransfer (ALT/SGP 70 U/L (12-78); Albumin, Blood 3.5 g/dL (3.4-5.0); Albumin/Globulin Ratio 0.8 (0.8-1.8); Alk Phos 117 U/L (50-136); Anion Gap 5 mmol/L (6-16); Aspartate Aminotrans (AST/SGOT 36 U/L (12-37); Bilirubin, Direct 0.2 mg/dL (0.0-0.3); Bilirubin, Total 0.7 mg/dL (0.1-1.0); Blood Urea Nitrogen 15 mg/dL (8-24); Bun/Creatinine Ratio 13.4 (12.0-20.0); CO2, Blood 26 mmol/L (21-32); Calcium, Blood 8.9 mg/dL (8.5-10.1); Chloride, Blood 107 mmol/L (98-108); Creatinine, Blood 1.12 mg/dL (0.60-1.20); Globulin, Blood 4.4 g/dL (2.2-4.0); Glomerular Filtration Rate >60 (60-); Glucose, Blood 110 mg/dL (70-99); Magnesium, Blood 1.5 mg/dL (1.6-2.4); Phosphorus, Blood 3.5 mg/dL (2.5-4.9); Potassium, Blood 4.2 mmol/L (3.5-5.5); Sodium, Blood 138 mmol/L (136-145); Total Protein, Blood 7.9 g/dL (6.4-8.2); Uric Acid, Blood 6.7 mg/dL (3.5-7.2)
--- NOTE | 2019-08-29 11:38 | NUR ---
LAB RESULTS FROM TODAY (EXCEPT THE TACROLIMUS WHICH IS A SEND OUT LAB) FAXED TO [facility].
== END 2019-08-29 10:14 | disposition home or self-care (01) ==
LOC: ATC 00:01
PROVIDERS: Internal Medicine
DX: G61.81 Chronic inflammatory demyelinating polyneuritis (principal); I10 Essential (primary) hypertension; G61.0 Guillain-Barre syndrome; Z94.4 Liver transplant status; Z79.82 Long term (current) use of aspirin; Z79.52 Long term (current) use of systemic steroids; Z79.899 Other long term (current) drug therapy; Z87.891 Personal history of nicotine dependence; Z88.8 Allergy status to other drugs, medicaments and biological substances
CPT/HCPCS: 80053; 80197; 82248; 83735; 84100; 84550; 85025; 96365; 96366; J1568

== ENCOUNTER 2019-08-30 00:12 | Day surgery (SDC) | payer OTHER | END 2019-08-30 10:17 | disposition home or self-care (01) | LOC: ATC 00:12 | DX: G61.81 Chronic inflammatory demyelinating polyneuritis (principal); I10 Essential (primary) hypertension; G61.0 Guillain-Barre syndrome; Z94.4 Liver transplant status; Z79.82 Long term (current) use of aspirin; Z79.52 Long term (current) use of systemic steroids; Z79.899 Other long term (current) drug therapy; Z88.8 Allergy status to other drugs, medicaments and biological substances; Z87.891 Personal history of nicotine dependence | CPT/HCPCS: 96365; 96366; J1568 ==

== ENCOUNTER 2019-09-29 06:50 | Day surgery (SDC) | payer OTHER ==
[~2019-09-29] VITALS: Ht 177.8 cm; Wt 107.9 kg
[~2019-09-29 06:50] MED LIST changes: +ADMELOG SO100 UNIT/1 SC; +Aspirin EC81 MG PO; +OMEPRAZOLE20 MG PO; +Oyster Shell C500 MG PO; +TACROLIMUS0.5 MG PO
--- NOTE | 2019-09-29 08:08 | NUR ---
09/29/19 0808 Mraylu Byrne PT. WHEEZY WHEN TURNED TO LEFT SIDE. DR. BROOKS WAS AWARE. PT. C/O HAVING ALLERGIES FROM OUTSIDE.
--- NOTE | 2019-09-29 11:34 | NUR ---
09/29/19 1134 Marylu Byrne S LATE ENTRY FOR 0757 PT. HAD VERBALIZED THAT HE HAD SOME CONGESTION. PT. VERBALIZES FROM OUTDOOR ALLERGIES. PT. DIDN'T FEEL CONGESTED IN CHEST, JUST NASAL/HEAD CONGESTION. PT. HAD VERBALIZED THAT HE HAD TOLD DR. BROOKS. PT. WITH CLEAR LUNGS.
== END 2019-09-29 09:30 | disposition home or self-care (01) ==
LOC: ORSCSDS 06:50
PROVIDERS: Internal Medicine Gastroenterology
PROC: 0DBP8ZX Excision of Rectum, Via Natural or Artificial Opening Endoscopic, Diagnostic (ICD-10-PCS; principal; 2019-09-29 08:00)
PROC: 0DBL8ZX Excision of Transverse Colon, Via Natural or Artificial Opening Endoscopic, Diagnostic (ICD-10-PCS; principal; 2019-09-29 08:00)
PROC: 0DBH8ZX Excision of Cecum, Via Natural or Artificial Opening Endoscopic, Diagnostic (ICD-10-PCS; principal; 2019-09-29 08:00)
DX: Z12.11 Encounter for screening for malignant neoplasm of colon (principal); Z86.010 Personal history of colon polyps; K57.30 Diverticulosis of large intestine without perforation or abscess without bleeding; K64.4 Residual hemorrhoidal skin tags; D12.3 Benign neoplasm of transverse colon; D12.0 Benign neoplasm of cecum; K62.1 Rectal polyp; I10 Essential (primary) hypertension; Z87.891 Personal history of nicotine dependence; K70.30 Alcoholic cirrhosis of liver without ascites; R73.9 Hyperglycemia, unspecified; E11.9 Type 2 diabetes mellitus without complications; Z79.899 Other long term (current) drug therapy; Z79.4 Long term (current) use of insulin; Z79.82 Long term (current) use of aspirin
CPT/HCPCS: 82947; 88305; J0330; J0461; J2250; J2405; J2704; J7120

== ENCOUNTER 2019-10-03 00:26 | Day surgery (SDC) | payer OTHER ==
[2019-10-03 08:53] LABS: BASOPHILS ABSOLUTE AUTO 0.05 K/mm3 (0.00-0.23); BASOPHILS PERCENT AUTO 1 % (0-2); EOSINOPHILS ABSOLUTE AUTO 0.76 K/mm3 (0.00-0.68); EOSINOPHILS PERCENT AUTO 10 % (0-6); IMMATURE GRAN ABSOLUTE AUTO 0.02 K/mm3 (0.00-0.10); IMMATURE GRAN PERCENT AUTO 0 % (0-1); LYMPHOCYTES ABSOLUTE AUTO 1.49 K/mm3 (0.84-5.20); LYMPHOCYTES PERCENT AUTO 20 % (21-46); MONOCYTES ABSOLUTE AUTO 0.83 K/mm3 (0.16-1.47); MONOCYTES PERCENT AUTO 11 % (4-13); Mean Corpuscular HGB 28.5 pg (26.0-34.0); Mean Corpuscular HGB Conc 33.3 g/dL (31.5-36.5); Mean Corpuscular Volume 85 fL (80-100); Mean Platelet Volume 12.4 fL (9.1-12.4); NEUTROPHILS ABSOLUTE AUTO 4.48 K/mm3 (1.96-9.15); NEUTROPHILS PERCENT AUTO 59 % (41-73); Platelet Count 143 K/mm3 (150-400); RDW Coefficient Variation 15.8 % (11.7-14.2); RDW Standard Deviation 47.5 fL (35.1-46.3); Red Blood Cell Count 5.62 M/mm3 (4.30-5.90); White Blood Cell Count 7.63 K/mm3 (4.00-11.30)
[2019-10-03 09:12] LABS: Alanine Aminotransfer (ALT/SGP 56 U/L (12-78); Albumin, Blood 3.8 g/dL (3.4-5.0); Albumin/Globulin Ratio 0.9 (0.8-1.8); Alk Phos 104 U/L (50-136); Anion Gap 7 mmol/L (6-16); Aspartate Aminotrans (AST/SGOT 31 U/L (12-37); Bilirubin, Direct 0.2 mg/dL (0.0-0.3); Bilirubin, Total 0.7 mg/dL (0.1-1.0); Blood Urea Nitrogen 19 mg/dL (8-24); CO2, Blood 24 mmol/L (21-32); Calcium, Blood 8.8 mg/dL (8.5-10.1); Chloride, Blood 105 mmol/L (98-108); Globulin, Blood 4.4 g/dL (2.2-4.0); Glomerular Filtration Rate >60 (60-); Glucose, Blood 122 mg/dL (70-99); Magnesium, Blood 1.6 mg/dL (1.6-2.4); Phosphorus, Blood 2.4 mg/dL (2.5-4.9); Potassium, Blood 3.9 mmol/L (3.5-5.5); Sodium, Blood 136 mmol/L (136-145); Total Protein, Blood 8.2 g/dL (6.4-8.2); Uric Acid, Blood 7.3 mg/dL (3.5-7.2)
== END 2019-10-03 11:02 | disposition home or self-care (01) ==
LOC: ATC 00:26
PROVIDERS: Internal Medicine
DX: G61.81 Chronic inflammatory demyelinating polyneuritis (principal); I10 Essential (primary) hypertension; G61.0 Guillain-Barre syndrome; Z94.4 Liver transplant status; Z79.52 Long term (current) use of systemic steroids; Z87.891 Personal history of nicotine dependence; Z79.82 Long term (current) use of aspirin; Z79.899 Other long term (current) drug therapy; Z88.8 Allergy status to other drugs, medicaments and biological substances
CPT/HCPCS: 80053; 80197; 82248; 83735; 84100; 84550; 85025; 96365; 96366; A9270; J1568; Q0163

== ENCOUNTER 2019-10-04 00:29 | Day surgery (SDC) | payer OTHER ==
--- NOTE | 2019-10-04 09:56 | NUR ---
PREMEDICATION PER PT, HE PREMEDICATED WITH OWN MEDICATION BEFORE ARRIVING TO ANU. NO PREMEDICATION MEDS GIVEN DUE TO THIS.
== END 2019-10-04 10:39 | disposition home or self-care (01) ==
LOC: ATC 00:29
DX: G61.81 Chronic inflammatory demyelinating polyneuritis (principal); I10 Essential (primary) hypertension; G61.0 Guillain-Barre syndrome; Z94.4 Liver transplant status; Z79.52 Long term (current) use of systemic steroids; Z79.82 Long term (current) use of aspirin; Z79.899 Other long term (current) drug therapy; Z88.8 Allergy status to other drugs, medicaments and biological substances
CPT/HCPCS: 96365; 96366; J1568

== ENCOUNTER 2019-10-05 00:15 | Day surgery (SDC) | payer OTHER ==
--- NOTE | 2019-10-05 08:42 | NUR ---
IV STARTS: DAFNE FISH RN ATTEMPTED 3 IV STARTS AND THIS RN ATTEMPTED 4, SUCCESS ON FOURTH.
== END 2019-10-05 10:40 | disposition home or self-care (01) ==
LOC: ATC 00:15
DX: G61.81 Chronic inflammatory demyelinating polyneuritis (principal); I10 Essential (primary) hypertension; G61.0 Guillain-Barre syndrome; Z94.4 Liver transplant status; Z79.82 Long term (current) use of aspirin; Z79.52 Long term (current) use of systemic steroids; Z79.899 Other long term (current) drug therapy; Z87.891 Personal history of nicotine dependence; Z88.8 Allergy status to other drugs, medicaments and biological substances
CPT/HCPCS: 96365; 96366; J1568

== ENCOUNTER 2019-10-06 00:12 | Day surgery (SDC) | payer OTHER | END 2019-10-06 10:25 | disposition home or self-care (01) | LOC: ATC 00:12 | DX: G61.81 Chronic inflammatory demyelinating polyneuritis (principal); I10 Essential (primary) hypertension; G61.0 Guillain-Barre syndrome; Z79.4 Long term (current) use of insulin; Z79.52 Long term (current) use of systemic steroids; Z79.82 Long term (current) use of aspirin; Z79.899 Other long term (current) drug therapy; Z88.8 Allergy status to other drugs, medicaments and biological substances; Z87.891 Personal history of nicotine dependence | CPT/HCPCS: 96365; 96366; J1568 ==

== ENCOUNTER 2019-11-01 00:02 | Day surgery (SDC) | payer OTHER ==
[2019-11-01 08:55] LABS: BASOPHILS ABSOLUTE AUTO 0.03 K/mm3 (0.00-0.23); BASOPHILS PERCENT AUTO 0 % (0-2); EOSINOPHILS ABSOLUTE AUTO 0.31 K/mm3 (0.00-0.68); EOSINOPHILS PERCENT AUTO 4 % (0-6); Hematocrit 47.2 % (37.0-53.0); Hemoglobin 15.5 g/dL (13.5-17.5); IMMATURE GRAN ABSOLUTE AUTO 0.02 K/mm3 (0.00-0.10); IMMATURE GRAN PERCENT AUTO 0 % (0-1); LYMPHOCYTES ABSOLUTE AUTO 1.26 K/mm3 (0.84-5.20); LYMPHOCYTES PERCENT AUTO 17 % (21-46); MONOCYTES ABSOLUTE AUTO 0.94 K/mm3 (0.16-1.47); MONOCYTES PERCENT AUTO 13 % (4-13); Mean Corpuscular HGB 28.5 pg (26.0-34.0); Mean Corpuscular HGB Conc 32.8 g/dL (31.5-36.5); Mean Corpuscular Volume 87 fL (80-100); Mean Platelet Volume 12.6 fL (9.1-12.4); NEUTROPHILS ABSOLUTE AUTO 4.96 K/mm3 (1.96-9.15); NEUTROPHILS PERCENT AUTO 66 % (41-73); Platelet Count 113 K/mm3 (150-400); RDW Coefficient Variation 15.9 % (11.7-14.2); RDW Standard Deviation 49.4 fL (35.1-46.3); Red Blood Cell Count 5.43 M/mm3 (4.30-5.90); White Blood Cell Count 7.52 K/mm3 (4.00-11.30)
[2019-11-01 09:04] LABS: Alanine Aminotransfer (ALT/SGP 53 U/L (12-78); Albumin, Blood 3.6 g/dL (3.4-5.0); Albumin/Globulin Ratio 0.8 (0.8-1.8); Alk Phos 117 U/L (50-136); Anion Gap 8 mmol/L (6-16); Aspartate Aminotrans (AST/SGOT 29 U/L (12-37); Bilirubin, Direct 0.3 mg/dL (0.0-0.3); Bilirubin, Total 0.9 mg/dL (0.1-1.0); Blood Urea Nitrogen 17 mg/dL (8-24); Bun/Creatinine Ratio 16.3 (12.0-20.0); CO2, Blood 24 mmol/L (21-32); Calcium, Blood 8.8 mg/dL (8.5-10.1); Chloride, Blood 104 mmol/L (98-108); Creatinine, Blood 1.04 mg/dL (0.60-1.20); Globulin, Blood 4.7 g/dL (2.2-4.0); Glomerular Filtration Rate >60 (60-); Glucose, Blood 129 mg/dL (70-99); Magnesium, Blood 1.5 mg/dL (1.6-2.4); Phosphorus, Blood 2.4 mg/dL (2.5-4.9); Sodium, Blood 136 mmol/L (136-145); Total Protein, Blood 8.3 g/dL (6.4-8.2); Uric Acid, Blood 6.9 mg/dL (3.5-7.2)
== END 2019-11-01 10:35 | disposition home or self-care (01) ==
LOC: ATC 00:02
PROVIDERS: Internal Medicine
DX: G61.81 Chronic inflammatory demyelinating polyneuritis (principal); G61.0 Guillain-Barre syndrome; I10 Essential (primary) hypertension; Z94.4 Liver transplant status; Z79.82 Long term (current) use of aspirin; Z79.52 Long term (current) use of systemic steroids; Z79.899 Other long term (current) drug therapy; Z87.891 Personal history of nicotine dependence; Z88.8 Allergy status to other drugs, medicaments and biological substances
CPT/HCPCS: 80053; 80197; 82248; 83735; 84100; 84550; 85025; 96365; 96366; A9270; J1568; Q0163

== ENCOUNTER 2019-12-15 00:04 | Day surgery (SDC) | payer OTHER ==
[2019-12-15 08:39] LABS: BASOPHILS ABSOLUTE AUTO 0.05 K/mm3 (0.00-0.23); BASOPHILS PERCENT AUTO 1 % (0-2); EOSINOPHILS ABSOLUTE AUTO 1.37 K/mm3 (0.00-0.68); EOSINOPHILS PERCENT AUTO 16 % (0-6); Hematocrit 50.1 % (37.0-53.0); Hemoglobin 16.9 g/dL (13.5-17.5); IMMATURE GRAN ABSOLUTE AUTO 0.03 K/mm3 (0.00-0.10); IMMATURE GRAN PERCENT AUTO 0 % (0-1); LYMPHOCYTES ABSOLUTE AUTO 1.06 K/mm3 (0.84-5.20); LYMPHOCYTES PERCENT AUTO 13 % (21-46); MONOCYTES ABSOLUTE AUTO 0.68 K/mm3 (0.16-1.47); MONOCYTES PERCENT AUTO 8 % (4-13); Mean Corpuscular HGB 29.7 pg (26.0-34.0); Mean Corpuscular HGB Conc 33.7 g/dL (31.5-36.5); Mean Corpuscular Volume 88 fL (80-100); NEUTROPHILS ABSOLUTE AUTO 5.24 K/mm3 (1.96-9.15); NEUTROPHILS PERCENT AUTO 62 % (41-73); Platelet Count 122 K/mm3 (150-400); RDW Coefficient Variation 15.4 % (11.7-14.2); RDW Standard Deviation 49.5 fL (35.1-46.3); Red Blood Cell Count 5.69 M/mm3 (4.30-5.90); White Blood Cell Count 8.43 K/mm3 (4.00-11.30)
[2019-12-15] MEDS ORDERED: AZIT500 PO ×2 (08:39→08:40)
[2019-12-15] MEDS ORDERED: ALBU90OI INH (08:39)
[2019-12-15 09:01] LABS: Alanine Aminotransfer (ALT/SGP 40 U/L (12-78); Albumin, Blood 3.9 g/dL (3.4-5.0); Albumin/Globulin Ratio 0.8 (0.8-1.8); Alk Phos 133 U/L (50-136); Anion Gap 5 mmol/L (6-16); Aspartate Aminotrans (AST/SGOT 32 U/L (12-37); Bilirubin, Direct 0.3 mg/dL (0.0-0.3); Bilirubin, Total 1.2 mg/dL (0.1-1.0); Blood Urea Nitrogen 16 mg/dL (8-24); Bun/Creatinine Ratio 15.7 (12.0-20.0); CO2, Blood 26 mmol/L (21-32); Calcium, Blood 9.3 mg/dL (8.5-10.1); Chloride, Blood 104 mmol/L (98-108); Creatinine, Blood 1.02 mg/dL (0.60-1.20); Globulin, Blood 4.8 g/dL (2.2-4.0); Glomerular Filtration Rate >60 (60-); Glucose, Blood 120 mg/dL (70-99); Phosphorus, Blood 3.5 mg/dL (2.5-4.9); Potassium, Blood 4.2 mmol/L (3.5-5.5); Sodium, Blood 135 mmol/L (136-145); Total Protein, Blood 8.7 g/dL (6.4-8.2); Uric Acid, Blood 7.4 mg/dL (3.5-7.2)
== END 2019-12-15 10:16 | disposition home or self-care (01) ==
LOC: ATC 00:04
PROVIDERS: Internal Medicine
DX: G61.81 Chronic inflammatory demyelinating polyneuritis (principal); I10 Essential (primary) hypertension; Z79.82 Long term (current) use of aspirin; Z88.8 Allergy status to other drugs, medicaments and biological substances; Z87.891 Personal history of nicotine dependence; Z79.899 Other long term (current) drug therapy
CPT/HCPCS: 80053; 80197; 82248; 83735; 84100; 84550; 85025; 96365; 96366; J1568

== ENCOUNTER 2019-12-16 00:51 | Day surgery (SDC) | payer OTHER ==
[~2019-12-16 00:51] MED LIST changes: +ALBU90OI INH; +AZIT500 PO
== END 2019-12-16 11:09 | disposition home or self-care (01) ==
LOC: ATC 00:51
DX: N30.00 Acute cystitis without hematuria (principal); N39.46 Mixed incontinence; J45.909 Unspecified asthma, uncomplicated; I13.0 Hypertensive heart and chronic kidney disease with heart failure and stage 1 through stage 4 chronic kidney disease, or unspecified chronic kidney disease; I50.9 Heart failure, unspecified; N18.9 Chronic kidney disease, unspecified; E78.00 Pure hypercholesterolemia, unspecified; Z87.891 Personal history of nicotine dependence; Z79.899 Other long term (current) drug therapy; Z88.2 Allergy status to sulfonamides; Z88.1 Allergy status to other antibiotic agents; Z88.8 Allergy status to other drugs, medicaments and biological substances; Z79.01 Long term (current) use of anticoagulants
CPT/HCPCS: 96365; 96366; J1568

== ENCOUNTER 2019-12-26 10:03 | Inpatient (IN) | payer OTHER ==
[~2019-12-26] VITALS: Ht 175.3 cm; Wt 106.6 kg
[~2019-12-26 10:03] MED LIST changes: +ASCO500 PO; -CHOL10002 PO; -ESTER-C 1,0001 EACH PO; +GABA300 PO; -GABA600 PO; +PRED1 PO; -PRED10 PO; +VITAMIN D31000 UNI1 PO
[2019-12-26 11:08] LABS: BASOPHILS ABSOLUTE AUTO 0.06 K/mm3 (0.00-0.23); BASOPHILS PERCENT AUTO 1 % (0-2); EOSINOPHILS PERCENT AUTO 15 % (0-6); Hematocrit 50.6 % (37.0-53.0); Hemoglobin 16.8 g/dL (13.5-17.5); IMMATURE GRAN ABSOLUTE AUTO 0.03 K/mm3 (0.00-0.10); IMMATURE GRAN PERCENT AUTO 0 % (0-1); LYMPHOCYTES ABSOLUTE AUTO 1.11 K/mm3 (0.84-5.20); LYMPHOCYTES PERCENT AUTO 13 % (21-46); MONOCYTES ABSOLUTE AUTO 0.87 K/mm3 (0.16-1.47); MONOCYTES PERCENT AUTO 10 % (4-13); Mean Corpuscular HGB 29.6 pg (26.0-34.0); Mean Corpuscular HGB Conc 33.2 g/dL (31.5-36.5); Mean Corpuscular Volume 89 fL (80-100); Mean Platelet Volume 10.9 fL (9.1-12.4); NEUTROPHILS ABSOLUTE AUTO 5.37 K/mm3 (1.96-9.15); NEUTROPHILS PERCENT AUTO 61 % (41-73); Platelet Count 154 K/mm3 (150-400); RDW Coefficient Variation 15.6 % (11.7-14.2); RDW Standard Deviation 50.4 fL (35.1-46.3); Red Blood Cell Count 5.68 M/mm3 (4.30-5.90); White Blood Cell Count 8.74 K/mm3 (4.00-11.30)
[2019-12-26 11:28] LABS: Alanine Aminotransfer (ALT/SGP 52 U/L (12-78); Albumin, Blood 3.9 g/dL (3.4-5.0); Albumin/Globulin Ratio 0.7 (0.8-1.8); Alk Phos 120 U/L (50-136); Anion Gap 7 mmol/L (6-16); Aspartate Aminotrans (AST/SGOT 43 U/L (12-37); Bilirubin, Total 0.8 mg/dL (0.1-1.0); Blood Urea Nitrogen 24 mg/dL (8-24); Bun/Creatinine Ratio 23.5 (12.0-20.0); CO2, Blood 27 mmol/L (21-32); Calcium, Blood 9.4 mg/dL (8.5-10.1); Chloride, Blood 100 mmol/L (98-108); Creatinine, Blood 1.02 mg/dL (0.60-1.20); Globulin, Blood 5.3 g/dL (2.2-4.0); Glomerular Filtration Rate >60 (60-); Glucose, Blood 121 mg/dL (70-99); Potassium, Blood 4.1 mmol/L (3.5-5.5); Sodium, Blood 134 mmol/L (136-145); Total Protein, Blood 9.2 g/dL (6.4-8.2); Troponin I <0.015 ng/mL (0.000-0.040)
[2019-12-26] MEDS ORDERED: IRBE75 PO (14:23)
[2019-12-26] MEDS ORDERED: PROGRAF PO (14:23)
[2019-12-26] MEDS ORDERED: GABA300 PO (14:58)
[2019-12-26] MEDS ORDERED: TACROLIMUS0.5 MG PO ×2 (18:50→18:51)
--- NOTE | 2019-12-26 19:32 | NUR ---
PT ARRIVED TO ROOM 301 FROM ED AND SETTLED IN TO BED. FAMILY AT BEDSIDE UNTIL ASSESSMENT STARTED. MED REC RECONCILED. DINNER ATE. MEDS CORRECTED AND CLARIFIED WITH PROVIDER. INDEPENDENT IN ROOM BUT AUDIBLY WHEEZY AND DYSPEIC WITH ACTIVITY. REPORT GIVEN TO ONCOMING SHIFT. PT REPORTS HE IS FEELING BETTER.
--- NOTE | 2019-12-26 20:59 | NUR ---
PHYSICIAN COMMUNICATION DR MARSHALL IN TO SEE PT. STATES TO DC ANY IV FLUIDS. ALSO ORDERS 1X DOSE OF IV FUROSEMIDE.
[2019-12-26 22:11] LABS: Adenovirus Not Detected (NOT DETECT); Coronavirus 229E Not Detected (NOT DETECT); Coronavirus HKU1 Not Detected (NOT DETECT); Coronavirus NL63 Not Detected (NOT DETECT); Coronavirus OC43 Not Detected (NOT DETECT)
[2019-12-26 22:12] LABS: Bordetella pertussis Not Detected (NOT DETECT); Chlamydophila pneumoniae Not Detected (NOT DETECT); Human Metapneumovirus Not Detected (NOT DETECT); Human Rhinovirus/Enterovirus Not Detected (NOT DETECT); Influenza A/2009-H1 Not Detected (NOT DETECT); Influenza A/H1 Not Detected (NOT DETECT); Influenza A/H3 Not Detected (NOT DETECT); Influenza B Not Detected (NOT DETECT); Mycoplasma pneumoniae Not Detected (NOT DETECT); Parainfluenza Virus 1 Not Detected (NOT DETECT); Parainfluenza Virus 2 Not Detected (NOT DETECT); Parainfluenza Virus 3 Not Detected (NOT DETECT); Parainfluenza Virus 4 Not Detected (NOT DETECT); Respiratory Syncytial Virus Not Detected (NOT DETECT)
[2019-12-27 05:03] LABS: BASOPHILS ABSOLUTE AUTO 0.01 K/mm3 (0.00-0.23); BASOPHILS PERCENT AUTO 0 % (0-2); EOSINOPHILS ABSOLUTE AUTO 0.01 K/mm3 (0.00-0.68); EOSINOPHILS PERCENT AUTO 0 % (0-6); Hematocrit 44.4 % (37.0-53.0); IMMATURE GRAN ABSOLUTE AUTO 0.03 K/mm3 (0.00-0.10); IMMATURE GRAN PERCENT AUTO 1 % (0-1); LYMPHOCYTES ABSOLUTE AUTO 0.44 K/mm3 (0.84-5.20); LYMPHOCYTES PERCENT AUTO 10 % (21-46); MONOCYTES ABSOLUTE AUTO 0.11 K/mm3 (0.16-1.47); MONOCYTES PERCENT AUTO 2 % (4-13); Mean Corpuscular HGB 30.1 pg (26.0-34.0); Mean Corpuscular HGB Conc 33.8 g/dL (31.5-36.5); Mean Corpuscular Volume 89 fL (80-100); Mean Platelet Volume 12.3 fL (9.1-12.4); NEUTROPHILS ABSOLUTE AUTO 4.02 K/mm3 (1.96-9.15); NEUTROPHILS PERCENT AUTO 87 % (41-73); Platelet Count 128 K/mm3 (150-400); RDW Coefficient Variation 15.1 % (11.7-14.2); RDW Standard Deviation 49.6 fL (35.1-46.3); Red Blood Cell Count 4.98 M/mm3 (4.30-5.90); White Blood Cell Count 4.62 K/mm3 (4.00-11.30)
[2019-12-27 05:35] LABS: Alanine Aminotransfer (ALT/SGP 50 U/L (12-78); Albumin, Blood 3.4 g/dL (3.4-5.0); Albumin/Globulin Ratio 0.8 (0.8-1.8); Alk Phos 103 U/L (50-136); Anion Gap 6 mmol/L (6-16); Aspartate Aminotrans (AST/SGOT 39 U/L (12-37); Bilirubin, Total 0.6 mg/dL (0.1-1.0); Blood Urea Nitrogen 20 mg/dL (8-24); Bun/Creatinine Ratio 22.2 (12.0-20.0); CO2, Blood 25 mmol/L (21-32); Calcium, Blood 8.7 mg/dL (8.5-10.1); Chloride, Blood 103 mmol/L (98-108); Globulin, Blood 4.5 g/dL (2.2-4.0); Glomerular Filtration Rate >60 (60-); Glucose, Blood 154 mg/dL (70-99); Potassium, Blood 4.4 mmol/L (3.5-5.5); Sodium, Blood 134 mmol/L (136-145); Total Protein, Blood 7.9 g/dL (6.4-8.2)
--- NOTE | 2019-12-27 05:50 | NUR ---
SHIFT SUMMARY AOX4. VSS. TELE RUNNING NSR HR 89. REPORTED MILD HEADACHE LAST NIGHT WHICH WAS RELIEVED W/TYLENOL, DENIES FURTHER PAIN. DENIES NAUSEA. DOES HAVE FREQUENT NONPRODUCTIVE COUGH, STATES HE HAS BEEN COUGHING UP GREEN MUCUS BEFORE COMING TO HOSPITAL BUT NO MUCUS NOTICED THIS SHIFT. DR MARSHALL IN LAST NIGHT TO SEE PT, ORDERED ENT CONSULT FOR POSSIBLE UPPER AIRWAY OBSTRUCTION & RACEMIC EPINEPHRINE BREATHING TX Q4 PRN, PT STATES HE FEELS THESE BREATHING TX ARE HELPING "ALOT" & HIS AUDIBLE WHEEZING IS LESS. LUNGS STILL HAVE DIM EXPIRATORY WHEEZES T/O, SPO2 >90% ON RA. LACTIC DECREASED TO 3.3 FROM 4.6, NOTIFIED CHARGE NURSE ESME BANGURA. CALL LIGHT IN REACH.
--- NOTE | 2019-12-27 06:08 | NUR ---
Pt gave this nursing administrator permission to take care of him today 12/27/2019.
--- NOTE | 2019-12-27 10:41 | NUR ---
Echocardiogram completed.
--- NOTE | 2019-12-27 18:18 | NUR ---
SHIFT SUMMARY PT INDEPENDENT IN ROOM. WHEEZING GONE AT THIS TIME AND HAD IMPROVED SIGNIFICANTLY FROM LAST NIGHT. COUGHING EPISODES HAVE IMPROVED THROUGH DAY. ENT DR. VARGAS IN TO SEE PT AFTER LUNCH. LARYGASCOPE COMPLETED WITH NOTHING OF NOTE REPORTED BY DR. VARGAS. WILL REPORT CONDITION TO ONCOMING SHIFT.
--- NOTE | 2019-12-28 06:09 | NUR ---
[employer] DRIER TENDER SUMMARY slept well. no complaints of discomfort or SOB. Patient did take two breathing tx prior to going to bed as he said he was going to try to make up some sleep without coughing. lung sounds dim with exp wheezes throughout upper lobes. Strong cough early in shift, then quieted down for the night.
--- NOTE | 2019-12-28 18:24 | NUR ---
SHIFT SUMMARY PT AXO, PLEASANT AND COOPERATIVE WITH CARE. VSS. DENIES PAIN. MEDICATED FOR COUGH PER EMAR. NO ACUTE CHANGES THIS SHIFT. BED IN LOW POSITION, CALL LIGHT WITHIN REACH. PT UP AD RAVINDRA IN ROOM WITH STEADY GAIT. IV PATENT AND SALINE LOCKED.
--- NOTE | 2019-12-29 04:58 | NUR ---
ROOF TRUSS DETAILER REPORT PT A/O X4. INDEPENDENT IN ROOM. DENIES PAIN, SOB, NAUSEA. VSS. SLEPT WELL TONIGHT. CALL LIGHT WITHIN REACH. NO ACUTE CHANGES. POSSIBLE DISCHARGE TO HOME TODAY.
[2019-12-29] MEDS ORDERED: ALBU2.5V5 INH (08:50)
[2019-12-29] MEDS ORDERED: FLUTICASONE-SA1 EAC2 INH (08:57)
[2019-12-29] MEDS ORDERED: Duoneb 2.5-0.5 M3 ML INH (08:57)
[2019-12-29] MEDS ORDERED: TUSSIN CF MULT118 ML PO (08:59)
--- NOTE | 2019-12-29 09:37 | NUR ---
DISCHARGE INSTRUCTIONS GIVEN TO PATIENT ALONG WITH F/U TIMES/DATES FOR PCP AND PULMONARY APPTs. EDUCATIONAL MATERIAL PROVIDED. IV REMOVED. ALL QUESTIONS ANSWERED. PATIENT IS IN HIS ROOM PREPARING FOR DISCHARGE. HIS RIDE TO BE EXPECTED AROUND 1030.
--- NOTE | 2019-12-29 10:30 | NUR ---
PATIENT DISCHARGED HOME WITH AT 1029.
== END 2019-12-29 10:41 | disposition home or self-care (01) | DRG 190 ==
LOC: ER 10:03 → MEDS 17:26 → ENPENDDIS 12-29 10:00 → MEDS 12-29 10:41
PROVIDERS: Emergency Medicine; ADMIT Internal Medicine
DX: J44.1 Chronic obstructive pulmonary disease with (acute) exacerbation (principal); J96.01 Acute respiratory failure with hypoxia; E87.1 Hypo-osmolality and hyponatremia; E87.2 Acidosis; Z94.4 Liver transplant status; J44.0 Chronic obstructive pulmonary disease with (acute) lower respiratory infection; I10 Essential (primary) hypertension; D69.6 Thrombocytopenia, unspecified; E11.42 Type 2 diabetes mellitus with diabetic polyneuropathy; N40.0 Benign prostatic hyperplasia without lower urinary tract symptoms; J20.9 Acute bronchitis, unspecified; Z51.5 Encounter for palliative care; T38.0X5A Adverse effect of glucocorticoids and synthetic analogues, initial encounter; E66.9 Obesity, unspecified; Z87.891 Personal history of nicotine dependence; Z98.2 Presence of cerebrospinal fluid drainage device; Z68.34 Body mass index [BMI] 34.0-34.9, adult
CPT/HCPCS: 0099U; 36415; 70491; 71046; 71250; 80053; 83605; 83880; 84145; 84484; 85025; 87070; 87077; 87186; 87205; 93306; 94640; 94644; 94760; 96374; 99285-25; A9270; J1100; J1644; J2930; J3475; J7030; J7500; J7507; Q9967

== ENCOUNTER 2020-01-12 | Day surgery (SDC) | payer OTHER ==
[~2020-01-12] MED LIST changes: +ALBU2.5V5 INH; +Duoneb 2.5-0.5 M3 ML INH; +FLUTICASONE-SA1 EAC2 INH; +PROGRAF PO; +TUSSIN CF MULT118 ML PO
[2020-01-12 08:42] LABS: BASOPHILS ABSOLUTE AUTO 0.03 K/mm3 (0.00-0.23); BASOPHILS PERCENT AUTO 0 % (0-2); EOSINOPHILS ABSOLUTE AUTO 0.51 K/mm3 (0.00-0.68); EOSINOPHILS PERCENT AUTO 8 % (0-6); Hematocrit 43.6 % (37.0-53.0); Hemoglobin 14.5 g/dL (13.5-17.5); IMMATURE GRAN ABSOLUTE AUTO 0.04 K/mm3 (0.00-0.10); IMMATURE GRAN PERCENT AUTO 1 % (0-1); LYMPHOCYTES ABSOLUTE AUTO 1.03 K/mm3 (0.84-5.20); LYMPHOCYTES PERCENT AUTO 15 % (21-46); MONOCYTES ABSOLUTE AUTO 0.65 K/mm3 (0.16-1.47); MONOCYTES PERCENT AUTO 10 % (4-13); Mean Corpuscular HGB 29.8 pg (26.0-34.0); Mean Corpuscular HGB Conc 33.3 g/dL (31.5-36.5); Mean Corpuscular Volume 90 fL (80-100); Mean Platelet Volume 10.8 fL (9.1-12.4); NEUTROPHILS ABSOLUTE AUTO 4.46 K/mm3 (1.96-9.15); NEUTROPHILS PERCENT AUTO 66 % (41-73); Platelet Count 81 K/mm3 (150-400); RDW Coefficient Variation 15.5 % (11.7-14.2); RDW Standard Deviation 51.1 fL (35.1-46.3); Red Blood Cell Count 4.86 M/mm3 (4.30-5.90); White Blood Cell Count 6.72 K/mm3 (4.00-11.30)
[2020-01-12 09:01] LABS: Alanine Aminotransfer (ALT/SGP 43 U/L (12-78); Albumin, Blood 3.2 g/dL (3.4-5.0); Albumin/Globulin Ratio 0.8 (0.8-1.8); Alk Phos 105 U/L (50-136); Anion Gap 7 mmol/L (6-16); Aspartate Aminotrans (AST/SGOT 24 U/L (12-37); Bilirubin, Direct 0.2 mg/dL (0.0-0.3); Bilirubin, Total 0.7 mg/dL (0.1-1.0); Blood Urea Nitrogen 20 mg/dL (8-24); CO2, Blood 25 mmol/L (21-32); Calcium, Blood 8.8 mg/dL (8.5-10.1); Chloride, Blood 107 mmol/L (98-108); Globulin, Blood 3.8 g/dL (2.2-4.0); Glomerular Filtration Rate >60 (60-); Glucose, Blood 123 mg/dL (70-99); Magnesium, Blood 1.5 mg/dL (1.6-2.4); Phosphorus, Blood 3.3 mg/dL (2.5-4.9); Potassium, Blood 4.2 mmol/L (3.5-5.5); Sodium, Blood 139 mmol/L (136-145); Uric Acid, Blood 7.1 mg/dL (3.5-7.2)
== END 2020-01-12 10:37 | disposition home or self-care (01) ==
LOC: ATC
PROVIDERS: Internal Medicine
DX: G61.81 Chronic inflammatory demyelinating polyneuritis (principal); I10 Essential (primary) hypertension; Z79.82 Long term (current) use of aspirin; Z79.899 Other long term (current) drug therapy; Z94.4 Liver transplant status; Z79.52 Long term (current) use of systemic steroids; Z88.8 Allergy status to other drugs, medicaments and biological substances; Z87.891 Personal history of nicotine dependence
CPT/HCPCS: 80053; 80197; 82248; 83735; 84100; 84550; 85025; 96365; 96366; A9270; J1568; Q0163

== ENCOUNTER 2020-01-13 00:25 | Day surgery (SDC) | payer OTHER | END 2020-01-13 09:50 | disposition home or self-care (01) | LOC: ATC 00:25 | DX: G61.81 Chronic inflammatory demyelinating polyneuritis (principal); I10 Essential (primary) hypertension; Z94.4 Liver transplant status; Z79.52 Long term (current) use of systemic steroids; Z88.8 Allergy status to other drugs, medicaments and biological substances; Z79.82 Long term (current) use of aspirin; Z79.899 Other long term (current) drug therapy; Z87.891 Personal history of nicotine dependence | CPT/HCPCS: J1568 ==

== ENCOUNTER → 2020-01-26 | Outpatient (CLI) | payer OTHER | END | disposition home or self-care (01) | LOC: LAB SHORT 15:44 → OLS 15:44 | DX: J06.9 Acute upper respiratory infection, unspecified (principal); J45.909 Unspecified asthma, uncomplicated | CPT/HCPCS: 87070; 87205 ==

== ENCOUNTER 2020-02-16 00:01 | Day surgery (SDC) | payer OTHER ==
[~2020-02-16] VITALS: Ht 175.3 cm; Wt 108.7 kg
--- NOTE | 2020-02-16 08:33 | NUR ---
PT TOOK OWN PRE-MEDS AT HOME.
[2020-02-16 08:46] LABS: BASOPHILS ABSOLUTE AUTO 0.05 K/mm3 (0.00-0.23); BASOPHILS PERCENT AUTO 1 % (0-2); EOSINOPHILS ABSOLUTE AUTO 1.54 K/mm3 (0.00-0.68); EOSINOPHILS PERCENT AUTO 21 % (0-6); Hematocrit 45.2 % (37.0-53.0); Hemoglobin 15.1 g/dL (13.5-17.5); IMMATURE GRAN ABSOLUTE AUTO 0.04 K/mm3 (0.00-0.10); IMMATURE GRAN PERCENT AUTO 1 % (0-1); LYMPHOCYTES ABSOLUTE AUTO 1.21 K/mm3 (0.84-5.20); LYMPHOCYTES PERCENT AUTO 16 % (21-46); MONOCYTES PERCENT AUTO 10 % (4-13); Mean Corpuscular HGB Conc 33.4 g/dL (31.5-36.5); Mean Corpuscular Volume 90 fL (80-100); Mean Platelet Volume 11.9 fL (9.1-12.4); NEUTROPHILS ABSOLUTE AUTO 3.86 K/mm3 (1.96-9.15); NEUTROPHILS PERCENT AUTO 52 % (41-73); Platelet Count 100 K/mm3 (150-400); RDW Coefficient Variation 14.8 % (11.7-14.2); RDW Standard Deviation 48.5 fL (35.1-46.3); Red Blood Cell Count 5.04 M/mm3 (4.30-5.90)
[2020-02-16 09:03] LABS: Albumin, Blood 3.6 g/dL (3.4-5.0); Albumin/Globulin Ratio 0.9 (0.8-1.8); Bilirubin, Direct 0.2 mg/dL (0.0-0.3); Bilirubin, Total 0.9 mg/dL (0.1-1.0); Bun/Creatinine Ratio 15.6 (12.0-20.0); Calcium, Blood 8.8 mg/dL (8.5-10.1); Creatinine, Blood 1.35 mg/dL (0.60-1.20); Globulin, Blood 3.8 g/dL (2.2-4.0); Magnesium, Blood 1.7 mg/dL (1.6-2.4); Phosphorus, Blood 3.2 mg/dL (2.5-4.9); Potassium, Blood 4.2 mmol/L (3.5-5.5); Total Protein, Blood 7.4 g/dL (6.4-8.2); Uric Acid, Blood 8.4 mg/dL (3.5-7.2)
== END 2020-02-16 10:12 | disposition home or self-care (01) ==
LOC: ATC 00:01
PROVIDERS: Internal Medicine
DX: G61.81 Chronic inflammatory demyelinating polyneuritis (principal); Z94.4 Liver transplant status; Z88.8 Allergy status to other drugs, medicaments and biological substances; Z79.899 Other long term (current) drug therapy; Z79.82 Long term (current) use of aspirin
CPT/HCPCS: 80053; 80197; 82248; 83735; 84100; 84550; 85025; 96365; 96366; J1568

== ENCOUNTER 2020-02-17 00:05 | Day surgery (SDC) | payer OTHER ==
--- NOTE | 2020-02-17 09:56 | NUR ---
LAB DRAW SEND OUT LABS DRAWN AND SENT.
== END 2020-02-17 09:56 | disposition home or self-care (01) ==
LOC: ATC 00:05
DX: G61.81 Chronic inflammatory demyelinating polyneuritis (principal); Z94.4 Liver transplant status; Z79.899 Other long term (current) drug therapy; Z79.82 Long term (current) use of aspirin; I10 Essential (primary) hypertension
CPT/HCPCS: J1568

== ENCOUNTER 2020-03-19 00:19 | Day surgery (SDC) | payer OTHER ==
[~2020-03-19] VITALS: Ht 175.3 cm; Wt 109.0 kg
== END 2020-03-19 10:18 | disposition home or self-care (01) ==
LOC: ATC 00:19
DX: G61.81 Chronic inflammatory demyelinating polyneuritis (principal); F10.129 Alcohol abuse with intoxication, unspecified; Z94.4 Liver transplant status; D70.9 Neutropenia, unspecified; D69.6 Thrombocytopenia, unspecified; Z79.899 Other long term (current) drug therapy; Z88.8 Allergy status to other drugs, medicaments and biological substances; Z87.891 Personal history of nicotine dependence
CPT/HCPCS: J1568

== ENCOUNTER 2020-09-25 06:37 | Day surgery (SDC) | payer OTHER ==
[~2020-09-25] VITALS: Ht 177.8 cm; Wt 104.5 kg
[~2020-09-25 06:37] MED LIST changes: +SYMBICORT 16010.2 GM INH
--- NOTE | 2020-09-25 07:20 | NUR ---
09/25/20 0720 DESI KELLEY ONE ATTEMPT BY LUCÍA IN RH VALVE ONE SUCCESSFUL BY LUCÍA IN RFA PT TOW
== END 2020-09-25 08:54 | disposition home or self-care (01) ==
LOC: ORSCSDS 06:37
PROVIDERS: Internal Medicine Gastroenterology
PROC: 0DBK8ZX Excision of Ascending Colon, Via Natural or Artificial Opening Endoscopic, Diagnostic (ICD-10-PCS; principal; 2020-09-25 08:00)
PROC: 0DBL8ZX Excision of Transverse Colon, Via Natural or Artificial Opening Endoscopic, Diagnostic (ICD-10-PCS; principal; 2020-09-25 08:00)
DX: Z86.010 Personal history of colon polyps (principal); D12.2 Benign neoplasm of ascending colon; K63.5 Polyp of colon; K57.30 Diverticulosis of large intestine without perforation or abscess without bleeding; K64.4 Residual hemorrhoidal skin tags; Z94.4 Liver transplant status; Z87.891 Personal history of nicotine dependence; G61.0 Guillain-Barre syndrome; Z79.899 Other long term (current) drug therapy
CPT/HCPCS: 82947; 88305; J2405; J2704; J7120

== ENCOUNTER → 2021-08-14 | Outpatient (CLI) | payer OTHER ==
[2021-08-14 22:27] LABS: C DIFFICILE DNA POSITIVE (Negative)
== END | disposition home or self-care (01) ==
LOC: LAB SHORT 15:56
PROVIDERS: Internal Medicine Nephrology
DX: R19.7 Diarrhea, unspecified (principal)
CPT/HCPCS: 87324; 87493

== ENCOUNTER 2022-09-23 09:12 | Day surgery (SDC) | payer OTHER ==
[~2022-09-23] VITALS: Ht 177.8 cm; Wt 103.8 kg
== END 2022-09-23 11:35 | disposition home or self-care (01) ==
LOC: ORSCSDS 09:12
PROVIDERS: Internal Medicine Gastroenterology
PROC: 0DBK8ZX Excision of Ascending Colon, Via Natural or Artificial Opening Endoscopic, Diagnostic (ICD-10-PCS; principal; 2022-09-23 10:30)
PROC: 0DBL8ZX Excision of Transverse Colon, Via Natural or Artificial Opening Endoscopic, Diagnostic (ICD-10-PCS; principal; 2022-09-23 10:30)
PROC: 0DBM8ZX Excision of Descending Colon, Via Natural or Artificial Opening Endoscopic, Diagnostic (ICD-10-PCS; principal; 2022-09-23 10:30)
DX: Z12.11 Encounter for screening for malignant neoplasm of colon (principal); Z86.010 Personal history of colon polyps; D12.2 Benign neoplasm of ascending colon; D12.3 Benign neoplasm of transverse colon; D12.4 Benign neoplasm of descending colon; K63.5 Polyp of colon; K64.8 Other hemorrhoids; K64.4 Residual hemorrhoidal skin tags; Z79.899 Other long term (current) drug therapy; Z79.82 Long term (current) use of aspirin; Z87.891 Personal history of nicotine dependence; I10 Essential (primary) hypertension
CPT/HCPCS: 82947; 88305; J2704; J7120